=== PATIENT | male | born 1950 | race Caucasian/White ===

== ENCOUNTER → 2016-06-20 | Outpatient (CLI) | payer MEDICARE ==
[2015-06-24 15:00] VITALS: BP 149/75
[~2016-06-20] MED LIST: ALPR0.5T6 PO; AMLO5TAB2 PO; ASPI81TA2 PO; ATORVASTATIN CA80 MG PO; CHRO200C PO; CINN500C PO; CONTRAST GIVEN MC PRN; FISH1CAP PO; GLIM4TAB2 PO; HYDR12.53 PO; IOHEXOL 240 MG/ML 50ML VIAL. PO ONE; LISI40TA PO; METF10002 PO; MULT-246 PO
--- NOTE | 2016-06-20 11:10 | RAD ---
Indication: Renal cell carcinoma, follow-up. Axial imaging through the chest, abdomen, and pelvis was performed without contrast. Comparison is made with prior CT from 11/30/2015. CT chest: No axillary lymphadenopathy is detected. No definite mediastinal or hilar lymphadenopathy is detected. There are calcified lymph nodes in the left hilum and subcarinal region consistent with prior granulomatous exposure. No pericardial effusion is detected. The previously noted pleural effusion on the right has resolved. There is linear scarring or atelectasis in the left lower lobe. Tiny nodule noted in the lateral portion of left lower lobe on prior is barely visible on today's exam. No new pulmonary nodule is detected. Impression: 1. No evidence of thoracic lymphadenopathy. Previously noted left lower lobe pulmonary nodule is now barely visible. 2. Resolution of previously noted right pleural effusion. CT abdomen and pelvis: No discrete liver mass is detected. The gallbladder is unremarkable. The pancreas and spleen are unremarkable. No adrenal mass is detected. Postop changes of right nephrectomy are again noted. Small bowel loops in the right renal fossa are seen. No residual or recurrent mass is identified. The left kidney is unremarkable. The aorta is normal caliber. No central retroperitoneal or mesenteric lymphadenopathy is identified. There is no free fluid. The small and large bowel loops are normal caliber. Mild sigmoid diverticulosis is noted without evidence of acute diverticulitis. The bladder is unremarkable. No pelvic lymphadenopathy is detected. The bony structures are nonacute. Impression: Stable noncontrast CT of the abdomen and pelvis when compared with exam from 11/30/2015. There is no evidence of a residual or recurrent renal mass or abdominal pelvic lymphadenopathy. PQRS Compliance Statement: One or more of the following individualized dose reduction techniques were utilized for this examination: 1. Automated exposure control 2. Adjustment of the mA and/or kV according to patient size 3. Use of iterative reconstruction technique
== END | disposition home or self-care (01) ==
LOC: CT 09:26
PROVIDERS: ATTEND Internal Medicine Hematology & Oncology
DX: C64.1 Malignant neoplasm of right kidney, except renal pelvis (principal); C34.90 Malignant neoplasm of unspecified part of unspecified bronchus or lung
CPT/HCPCS: 71250; 74176; Q9966

== ENCOUNTER → 2016-09-16 | Outpatient (CLI) | payer MEDICARE ==
[2015-06-24 15:00] VITALS: BP 149/75
[~2016-09-16] MED LIST changes: +ATOR20TA58 PO; +DOCU100C5 PO; +PIOG15TA21 PO
--- NOTE | 2016-09-16 12:23 | RAD ---
CT of the chest, abdomen and pelvis without contrast, 09/16/2016: History: Renal cell cancer No IV contrast was administered for this exam is requested. Oral contrast material was given for GI tract opacification. Comparison is made to a study from 06/20/2016. There are granulomatous calcifications in the left chest. There are unchanged linear opacities in the left lower lobe compatible with scarring. There is a tiny nodule in the left lateral costophrenic angle which is unchanged. There is a tiny hazy opacity in the anterior aspect of the right middle lobe which is unchanged. This lies at the site where a larger nodule was present on older studies. No new pulmonary abnormality is seen. No pleural fluid is evident. There is mild calcific plaquing of aorta without evidence of aneurysm. No mediastinal adenopathy is seen. The unopacified liver is unremarkable. No gallbladder abnormality is seen. The pancreas shows no abnormality. The spleen is at the upper limits of normal in size but unchanged. The right kidney is surgically absent. There is mild cortical scarring of the left kidney. The unopacified left kidney is otherwise unremarkable. Mild aortoiliac calcific plaquing is present. No abdominal or pelvic adenopathy is seen. The prostate gland is not enlarged. A few diverticula are present in the sigmoid colon. The bowel loops are not dilated. No free fluid is present in the abdomen or pelvis. IMPRESSION: 1. Status post right nephrectomy with no evidence of tumor recurrence in the abdomen or pelvis. 2. Borderline splenomegaly. 3. Sigmoid diverticulosis. 4. Stable tiny left basilar pulmonary opacity. 5. No new chest abnormality. PQRS Compliance Statement: One or more of the following individualized dose reduction techniques were utilized for this examination: 1. Automated exposure control 2. Adjustment of the mA and/or kV according to patient size 3. Use of iterative reconstruction technique
== END | disposition home or self-care (01) ==
LOC: CT 09:25
PROVIDERS: ATTEND Internal Medicine Hematology & Oncology
DX: K57.30 Diverticulosis of large intestine without perforation or abscess without bleeding (principal); R16.1 Splenomegaly, not elsewhere classified
CPT/HCPCS: 71250; 74176; Q9966

== ENCOUNTER 2017-03-10 11:37 | Inpatient (IN) | payer MEDICARE ==
[~2017-03-10] VITALS: Ht 180.3 cm; Wt 113.4 kg
[~2017-03-10 11:37] MED LIST changes: +ASPI-630 PO; -ASPI81TA2 PO; -CINN500C PO; +CINN500C2 PO; -CONTRAST GIVEN MC PRN; +DOCU100C28 PO; -DOCU100C5 PO; -IOHEXOL 240 MG/ML 50ML VIAL. PO ONE; +METF-620 PO; -METF10002 PO; -PIOG15TA21 PO; +PIOG15TA42 PO
[2017-03-10 12:40] VITALS: BP 197/100
--- NOTE | 2017-03-10 13:06 | HP ---
ADMIT DATE: 03/10/2017 CHIEF COMPLAINT: Flank and abdominal pain. HISTORY OF PRESENT ILLNESS: A 66-year-old white male came in with right upper quadrant and right back pain over the last 3-4 days. This started with fever, but no cough, sputum production, vomiting, diarrhea, melena, hematochezia, skin rash, or any injury he knows of. The fever resolved, the pain mainly in his abdomen has gotten worse without clear etiology. He has had a right nephrectomy about 2 years ago for renal cell cancer and last CT scan and bone scan in 08/2016 showed no sign of metastatic disease. He had a colonoscopy a few months prior to admission and aside from the left-sided diverticula, no lesions were seen. PAST MEDICAL HISTORY: He has had a cholecystectomy last year. He is hypertensive and diabetic and takes multiple meds for this. His A1c last was 7.7 with good blood pressure control. ALLERGIES: LISTED TO PENICILLIN. SOCIAL HISTORY: , nonsmoker, nondrinker, not physically active. FAMILY HISTORY: Unremarkable. Mother of lung cancer. REVIEW OF SYSTEMS: No other specific problems. OBJECTIVE: ENT: All within normal limits. NECK: No masses, nodes or bruits. LUNGS: Clear. CARDIOVASCULAR: Regular rate. No irregular beat or tachycardia. ABDOMEN: Soft, benign and nontender except in the right upper quadrant where there is guarding and tenderness superior to the right upper quadrant incision from his cholecystectomy. No skin rash or hyperesthesia is seen and no other masses or tenderness is found. BACK: He is tender on the right 10th and 11th ribs, but no skin rash or lesions are seen. Flank is nontender. EXTREMITIES: Good pedal and radial pulses. No edema. No joint or skin lesions. NEUROLOGIC: Physiologic. ASSESSMENT: Right flank and upper quadrant pain, etiology undetermined in a patient with right renal absence and no gallbladder. The possibility of right-sided diverticulitis is present, but highly unlikely and herpes zoster possible, but no skin lesions are seen present. Otherwise, he has controlled type 2 diabetes and hypertension and appears to be cured from his renal cell cancer at least as of metastatic workup in 08/2016. PLAN: Labs and CT scan for now. GIGI GONZALEZ MD DR: ROBBY/zechariah JOB#: [id number] / [id number]
[2017-03-10 13:41] LABS: BASO % 1 % (0-3); EOS % 2 % (0-3); HEMATOCRIT 36.1 % (39.0-53.0); HEMOGLOBIN 12.7 g/dL (13.0-17.5); LYMPH # 1.3 x10^3/uL (1.0-4.8); LYMPH % 27 % (24-48); MEAN CORPUSCULAR HEMOGLOBIN 32 pg (25-35); MEAN CORPUSCULAR HGB CONC 35 g/dL (31-37); MEAN CORPUSCULAR VOLUME 90 fL (79-100); MONO % 7 % (0-9); NEUT % 64 % (31-73); PLATELET COUNT 225 x10^3/uL (140-400); RED BLOOD COUNT 4.01 x10^6/uL (4.30-5.70); RED CELL DISTRIBUTION WIDTH 14.6 % (11.5-14.5); WHITE BLOOD COUNT 4.8 x10^3/uL (4.0-11.0)
[2017-03-10] MEDS ORDERED: CONTRAST GIVEN MC PRN (14:15)
[2017-03-10] MEDS ORDERED: IOHEXOL 240 MG/ML 50ML VIAL. PO ONE (14:15)
[2017-03-10] MEDS ORDERED: IOHEXOL 300 MG/ML 75 ML VIAL IV ONE (14:15)
[2017-03-10 14:17] LABS: ALBUMIN 3.2 g/dL (3.4-5.0); ALBUMIN/GLOBULIN RATIO 0.7 (1.0-1.7); ALK PHOS 91 U/L (46-116); ANION GAP 11 (6-14); BLOOD UREA NITROGEN 18 mg/dL (8-26); BUN/CREATININE RATIO 11 (6-20); CARBON DIOXIDE 25 mmol/L (21-32); CHLORIDE 102 mmol/L (98-107); CHOLESTEROL 288 mg/dL (0-200); CREATININE 1.6 mg/dL (0.7-1.3); GFR 43.3; GLUCOSE 165 mg/dL (70-99); HDLC 29 mg/dL (40-60); NON-HDL CHOLESTEROL 259 mg/dL (0-129); POTASSIUM 3.8 mmol/L (3.5-5.1); SODIUM 138 mmol/L (136-145); TOTAL BILIRUBIN 0.4 mg/dL (0.2-1.0); TOTAL PROTEIN 7.8 g/dL (6.4-8.2)
[2017-03-10 15:00] VITALS: BP 191/93
[2017-03-10 15:29] LABS: ALT (SGPT) 47 U/L (16-63); AST (SGOT) 28 U/L (15-37); CHOLESTEROL/HDL RATIO 9.9; TRIGLYCERIDES 1458 mg/dL (0-150)
[2017-03-10] MEDS: HYDROmorphone 2 MG/ML VIAL IVP PRN ×2 (15:29→20:40)
--- NOTE | 2017-03-10 16:33 | RAD ---
Indication: Right upper abdominal pain. Right flank pain. The history of previous right nephrectomy has been provided. Axial images through the abdomen and pelvis were obtained. Both IV and oral contrast were administered. Approximately 60 cc of Omnipaque 300 was administered intravenously. Note is made of a prior examination 09/16/2016. No acute or definite significant finding at either lung base is seen. There is a small opacity in the right middle lobe having an appearance similar to the previous exam. There is very minimal volume loss at the left lung base probably reflecting atelectasis. The liver and spleen are within normal limits. Clips are noted in the gallbladder fossa. The pancreas appears unremarkable. The left adrenal gland and kidney appear normal. Again note is made that the patient is status post right nephrectomy. An acute finding in the abdomen is not seen. Evidence of tumor recurrence or metastatic disease is not seen. In the pelvis occasional diverticula are seen associated with the large bowel. Active inflammation is not seen. Acute finding is not apparent. IMPRESSION: No acute finding seen in the abdomen or pelvis. No evidence of tumor recurrence or metastatic disease PQRS Compliance Statement: One or more of the following individualized dose reduction techniques were utilized for this examination: 1. Automated exposure control 2. Adjustment of the mA and/or kV according to patient size 3. Use of iterative reconstruction technique
[2017-03-10 16:37] LABS: BILIRUBIN,URINE NEGATIVE (NEG); GLUCOSE,URINE 100 mg/dL (NEG); NITRITE,URINE NEGATIVE (NEG); PH,URINE 6.5; PROTEIN,URINE >=300 mg/dL (NEG-TRACE); UROBILINOGEN,URINE 0.2 mg/dL (0.2 mg/dL)
[2017-03-10 16:43] LABS: WBC,URINE OCC /HPF (0-4)
[2017-03-10 16:44] LABS: BACTERIA,URINE 0 /HPF (0-FEW)
[2017-03-10] MEDS: IV DEXTROSE 5 %-0.45 % NACL 1,000 ML IV SCH (16:55)
[2017-03-10 19:05] VITALS: BP 170/87
[2017-03-10 23:41] VITALS: BP 130/75
[2017-03-11] MEDS: IV DEXTROSE 5 %-0.45 % NACL 1,000 ML IV SCH ×3 (02:30→19:15)
[2017-03-11 03:15] VITALS: BP 140/65
[2017-03-11 07:00] VITALS: BP 154/71
[2017-03-11] MEDS: HYDROmorphone 2 MG/ML VIAL IVP PRN (07:28)
--- NOTE | 2017-03-11 08:41 | PDOC ---
Provider Note Provider Note still RUQ pain, now nauseous from dilaudid- exam same, lab , ct normal- will dc dilaudid, hold metformin, watch for hz lesions GIGI GONZALEZ MD Mar 11, 2017 08:41
[2017-03-11] MEDS ORDERED: CHROMIUM PICOLINATE 200 MCG PO SCH (09:00)
[2017-03-11] MEDS: ALPRAZolam 0.5 MG TABLET PO SCH ×2 (09:47→21:22)
[2017-03-11] MEDS: hydroCHLOROthiazide 12.5 MG CAPSULE PO SCH (09:47)
[2017-03-11] MEDS: DOCUSATE SODIUM 100 MG CAPSULE. PO SCH (09:47)
[2017-03-11] MEDS: MULTIVITAMIN with MINERAL TABLET. PO SCH (09:47)
[2017-03-11] MEDS: LISINOPRIL 40 MG TABLET. PO SCH (09:48)
[2017-03-11] MEDS: amLODIPine BESYLATE 5 MG TABLET PO SCH (09:48)
[2017-03-11] MEDS: ONDANSETRON PF 4 MG/2 ML VIAL. IV PRN ×2 (10:04→17:49)
[2017-03-11 11:01] VITALS: BP 164/81
[2017-03-11] MEDS: HYDROcodone/APAP 5/325MG 1 TAB TABLET PO PRN ×2 (13:52→21:22)
[2017-03-11 14:43] VITALS: BP 146/77
[2017-03-11 19:49] VITALS: BP 142/61
[2017-03-11] MEDS: ATORVASTATIN CALCIUM 20 MG TABLET PO SCH (21:22)
[2017-03-11 23:10] VITALS: BP 104/49
[2017-03-12] MEDS: IV DEXTROSE 5 %-0.45 % NACL 1,000 ML IV SCH (03:06)
[2017-03-12 03:16] VITALS: BP 133/67
[2017-03-12 06:49] VITALS: BP 155/71
--- NOTE | 2017-03-12 08:35 | PDOC ---
Provider Note Provider Note less nausea, less RUQ pain, more pain in R parathoracic area, around ribs 04/06 - still no fever , rash- lasbs ok- will adv diet , get xr ribs/t spine- bone scan 09/09 neg re renal celll CA GIGI GONZALEZ MD Mar 12, 2017 08:35
[2017-03-12] MEDS: ONDANSETRON PF 4 MG/2 ML VIAL. IV PRN (08:58)
[2017-03-12] MEDS: HYDROcodone/APAP 5/325MG 1 TAB TABLET PO PRN ×3 (08:58→20:09)
[2017-03-12] MEDS: ALPRAZolam 0.5 MG TABLET PO SCH ×2 (08:59→20:08)
[2017-03-12] MEDS: DOCUSATE SODIUM 100 MG CAPSULE. PO SCH (08:59)
[2017-03-12] MEDS: LISINOPRIL 40 MG TABLET. PO SCH (08:59)
[2017-03-12] MEDS: amLODIPine BESYLATE 5 MG TABLET PO SCH (08:59)
[2017-03-12] MEDS: hydroCHLOROthiazide 12.5 MG CAPSULE PO SCH (08:59)
[2017-03-12] MEDS: MULTIVITAMIN with MINERAL TABLET. PO SCH (08:59)
[2017-03-12 10:47] VITALS: BP 138/65
--- NOTE | 2017-03-12 14:26 | RAD ---
Indication pain. AP and lateral views of the thoracic spine were obtained as well as a swimmer's view. The patient is moderately kyphotic. There is suspect bony demineralization. There is mild wedging of multiple mid and lower thoracic vertebral body segments. The appearance is similar to a CT examination 09/16/2016. A definite acute finding is not seen and no marked compression deformity is seen. There is mild scoliosis. IMPRESSION: Chronic changes. No acute bony finding is seen
[2017-03-12 15:06] VITALS: BP 151/78
--- NOTE | 2017-03-12 15:55 | RAD ---
EXAM: Fall chest with three-view right rib series. HISTORY: Right chest pain. COMPARISON: 09/17/2012. FINDINGS: There are no displaced right rib fractures. Opacities in the lung bases indicate atelectasis or scarring. Calcified mediastinal lymph nodes are likely secondary to old granulomatous disease. There are surgical clips in the right paraspinal territory. There is no pneumothorax or pleural effusion. The heart is not enlarged. IMPRESSION: 1. No displaced right rib fracture. 2. Bibasilar atelectasis or scarring.
[2017-03-12 19:39] VITALS: BP 143/68
[2017-03-12] MEDS: ATORVASTATIN CALCIUM 20 MG TABLET PO SCH (20:08)
[2017-03-12 23:01] VITALS: BP 120/70
[2017-03-13 03:01] VITALS: BP 132/75
[2017-03-13 06:55] VITALS: BP 167/69
[2017-03-13] MEDS: HYDROcodone/APAP 5/325MG 1 TAB TABLET PO PRN (08:30)
[2017-03-13] MEDS: MULTIVITAMIN with MINERAL TABLET. PO SCH (08:30)
[2017-03-13] MEDS: LISINOPRIL 40 MG TABLET. PO SCH (08:30)
[2017-03-13 08:31] VITALS: BP 167/69
[2017-03-13] MEDS: ALPRAZolam 0.5 MG TABLET PO SCH (08:31)
[2017-03-13] MEDS: amLODIPine BESYLATE 5 MG TABLET PO SCH (08:31)
[2017-03-13] MEDS: DOCUSATE SODIUM 100 MG CAPSULE. PO SCH (08:31)
--- NOTE | 2017-03-13 09:01 | DISCH ---
DISCHARGE INSTRUCTIONS Condition on Discharge Condition on Discharge: Stable Activity After Discharge Activity Instructions for Disc: No restrictions Diet after Discharge Diet after Discharge: Diabetic No Calorie Level Follow-Up Follow up with: GIGI Norton MD Mar 13, 2017 09:01
--- NOTE | 2017-03-13 09:03 | PDOC ---
Provider Note Provider Note [id number] GIGI GONZALEZ MD Mar 13, 2017 09:03
--- NOTE | 2017-03-13 09:17 | DS ---
DATE OF DISCHARGE: 03/13/2017 HOSPITAL SUMMARY: A 66-year-old white male admitted with right upper quadrant and right parathoracic pain of unknown etiology. CBC, chemistry profile and urinalysis were within normal limits. Abdominal pelvic CT was normal. X-rays of the thoracic spine and right ribs and chest were normal as well. Etiology of the pain was unclear until the patient remembered an injury about 1 week prior to admission with pain in the right parathoracic area and certain movements were reproducible of the pain and it was felt to be a parathoracic injury. He is comfortable to be followed as an outpatient at this point. FINAL DIAGNOSES: Parathoracic strain with radicular abdominal pain. OPERATIONS, PROCEDURES, COMPLICATIONS, AND CONSULTATIONS: None. DISPOSITION: [place] t.i.d. p.r.n. for pain for 1 week, rest of home meds remain the same. Regular diet, diabetic restrictions, activity as tolerated. Office followup in 1 week to assess for healing. May consider the use of Lidoderm patches if the pain persists, but appears to be soft tissue at this point. GIGI GONZALEZ MD DR: ROBBY/zechariah JOB#: [id number] / [id number]
[2017-03-13] MEDS: hydroCHLOROthiazide 12.5 MG CAPSULE PO SCH (10:25)
== END 2017-03-13 10:45 | disposition home or self-care (01) | DRG 563 ==
LOC: 6 SOUTH 12:08
PROVIDERS: ADMIT Family Medicine; ATTEND Family Medicine
DX: S29.012A Strain of muscle and tendon of back wall of thorax, initial encounter (principal); E44.1 Mild protein-calorie malnutrition; E11.9 Type 2 diabetes mellitus without complications; Y99.8 Other external cause status; Y92.89 Other specified places as the place of occurrence of the external cause; Y93.89 Activity, other specified; X58.XXXA Exposure to other specified factors, initial encounter; I10 Essential (primary) hypertension; Z80.1 Family history of malignant neoplasm of trachea, bronchus and lung; Z85.528 Personal history of other malignant neoplasm of kidney; Z90.49 Acquired absence of other specified parts of digestive tract; Z88.0 Allergy status to penicillin; Z68.34 Body mass index [BMI] 34.0-34.9, adult
CPT/HCPCS: 36415; 71101; 72072; 74177; 80053; 80061; 81001; 82962; 85025; 87040; J1170; J2405; Q9966; Q9967

== ENCOUNTER → 2017-10-13 | Outpatient (CLI) | payer MEDICARE ==
[~2017-10-13] MED LIST changes: -ALPR0.5T6 PO; -AMLO5TAB2 PO; -ASPI-630 PO; -ATOR20TA58 PO; -ATORVASTATIN CA80 MG PO; -CHRO200C PO; -CINN500C2 PO; -DOCU100C28 PO; -FISH1CAP PO; -GLIM4TAB2 PO; -HYDR12.53 PO; +IOHEXOL 240 MG/ML 50ML VIAL. PO; -LISI40TA PO; -METF-620 PO; -MULT-246 PO; -PIOG15TA42 PO
[2017-10-13] MEDS: IOHEXOL 240 MG/ML 50ML VIAL. PO (11:12)
== END | disposition home or self-care (01) ==
LOC: CT 09:37
DX: C64.1 Malignant neoplasm of right kidney, except renal pelvis (principal); D71 Functional disorders of polymorphonuclear neutrophils; K57.30 Diverticulosis of large intestine without perforation or abscess without bleeding; I87.8 Other specified disorders of veins; R91.8 Other nonspecific abnormal finding of lung field; R16.1 Splenomegaly, not elsewhere classified; Z90.5 Acquired absence of kidney
CPT/HCPCS: 71250; 74176; Q9966

== ENCOUNTER 2019-04-14 06:35 | Outpatient (CLI) | payer MEDICARE ==
[~2019-04-14] VITALS: Ht 180.3 cm; Wt 124.3 kg
[2019-04-14] VITALS (10 sets, daily range): BP systolic 137–191; BP diastolic 61–90
[~2019-04-14 06:35] MED LIST changes: +ALPR0.5T6 PO; +AMLO5TAB10 PO; +ASPI-630 PO; +ATOR20TA58 PO; +ATOR40TA59 PO; +ATORVASTATIN CA80 MG PO; +CHROMIUM PICO200 MCG PO; +CINN500C2 PO; +DOCU100C28 PO; +FISH1CAP PO; +GLIM4TAB4 PO; +HYDR12.575 PO; -IOHEXOL 240 MG/ML 50ML VIAL. PO; +LISI-130 PO; +METF10007 PO; +MULT-246 PO; +PIOG15TA42 PO
[2019-04-14] MEDS ORDERED: INSU100C4 SQ (07:25)
[2019-04-14] MEDS ORDERED: CARV6.25 PO (07:25)
[2019-04-14] MEDS ORDERED: HYDR-2868 PO (07:25)
[2019-04-14] MEDS ORDERED: INSU100V37 SQ (07:25)
[2019-04-14] MEDS ORDERED: SERT25TA4 PO (07:25)
[2019-04-14] MEDS ORDERED: LISI1TAB19 PO (07:25)
[2019-04-14] MEDS ORDERED: CHOL500021 PO (07:25)
[2019-04-14 07:39] LABS: BASO % 0 % (0-3); EOS # 0.1 x10^3/uL (0.0-0.7); EOS % 2 % (0-3); HEMATOCRIT 31.4 % (39.0-53.0); HEMOGLOBIN 10.7 g/dL (13.0-17.5); LYMPH # 1.3 x10^3/uL (1.0-4.8); LYMPH % 27 % (24-48); MEAN CORPUSCULAR HEMOGLOBIN 32 pg (25-35); MEAN CORPUSCULAR HGB CONC 34 g/dL (31-37); MEAN CORPUSCULAR VOLUME 93 fL (79-100); MONO # 0.5 x10^3/uL (0.0-1.1); MONO % 10 % (0-9); NEUT % 61 % (31-73); PLATELET COUNT 191 x10^3/uL (140-400); RED BLOOD COUNT 3.37 x10^6/uL (4.30-5.70); RED CELL DISTRIBUTION WIDTH 14.3 % (11.5-14.5); WHITE BLOOD COUNT 4.9 x10^3/uL (4.0-11.0)
[2019-04-14 07:48] LABS: CALCIUM 8.7 mg/dL (8.5-10.1); CREATININE 3.5 mg/dL (0.7-1.3); GFR 17.5; POTASSIUM 5.1 mmol/L (3.5-5.1); PROTHROMBIN TIME PATIENT 14.1 SEC (11.7-14.0)
[2019-04-14] MEDS ORDERED: LIDOCAINE WITH 8.4% SOD BICARB 3 ML DISP.SYRIN. ONE (08:00)
[2019-04-14] MEDS ORDERED: fentaNYL PF VIAL 100 MCG/2 ML VIAL ONE (08:21)
[2019-04-14] MEDS ORDERED: MIDAZOLAM HCL/PF 2 MG/2 ML VIAL. ONE (08:21)
[2019-04-14] MEDS ORDERED: fentaNYL PF VIAL 100 MCG/2 ML VIAL IV ONE (08:45)
[2019-04-14] MEDS ORDERED: LIDOCAINE WITH 8.4% SOD BICARB 3 ML DISP.SYRIN. IJ ONE (08:45)
[2019-04-14] MEDS ORDERED: MIDAZOLAM HCL/PF 2 MG/2 ML VIAL. IV ONE (08:45)
--- NOTE | 2019-04-14 10:01 | NUR ---
Discharge Note: NICK WOODRUFF Discharge instructions and discharge home medications reviewed with Patient and a copy given. All questions have been answered and understanding verbalized. The following instructions and handouts were given: moderate sedation and bone marrow biopsy post care Discontinued lines and drains: Peripheral IV intact. Patient discharged to Home or Self Care withSpousevia Wheelchair
--- NOTE | 2019-04-14 12:00 | RAD ---
[place] bone marrow CT-guided bone marrow biopsy. 04/14/2019 9:57 AM Indication: IGA KAPPA PARAPROTEIN Discussion: The risks and benefits of the procedure, including but not limited to, bleeding and infection were discussed patient. Informed consent was obtained. The patient was brought to the CT scanner and placed in the prone position. A timeout procedure was performed. [employer] CT imaging of the pelvis demonstrated left ilium amenable to bone marrow biopsy. The overlying soft tissues were prepped and draped using maximum sterile barrier technique. 1% lidocaine without epinephrine was administered for local anesthesia. Under intermittent CT guidance, an OncControl needle was advanced into the bone marrow of the left iliac crest. 2 Aspirates and 1 core biopsy samples were obtained. Samples were delivered to pathology was present at the time of procedure. The needle was removed and manual pressure held to achieve hemostasis. No immediate complications were identified. The procedure was performed under conscious sedation including continuous cardiopulmonary monitoring via dedicated sedation nurse. Sedation time: 20 minutes Impression: Successful CT-guided bone marrow biopsy of the left iliac crest . PQRS Compliance Statement: One or more of the following individualized dose reduction techniques were utilized for this examination: 1. Automated exposure control 2. Adjustment of the mA and/or kV according to patient size 3. Use of iterative reconstruction technique
== END 2019-04-14 10:10 | disposition home or self-care (01) ==
LOC: INTRAD 06:35
PROVIDERS: ATTEND Internal Medicine Hematology & Oncology
DX: D47.2 Monoclonal gammopathy (principal); C64.1 Malignant neoplasm of right kidney, except renal pelvis
CPT/HCPCS: 36415; 38222; 77012; 80048; 85025; 85610; 88184; 88185; 88237; 99152; J2250; J3010